=== PATIENT | female | born 1990 | race Caucasian/White ===

== ENCOUNTER 2022-02-06 20:35 | Emergency (ER) | payer OTHER, MEDICAID, SELFPAY ==
[2022-02-06 21:00] VITALS: BP 130/92; PULSE 71; RESP 16; TEMP 36; O2SAT 99; BMI 28.3
[2022-02-06 21:09] LABS: Appearance Urine Cloudy (Clear); Bilirubin Urine Negative (Negative); Blood Urine 2+ (Negative); Color Urine Yellow (Yellow); Glucose Urine Negative (Negative); Ketones Urine Negative (Negative); Leukocyte Esterase Urine 1+ (Negative); Nitrite Urine Negative (Negative); Protein Urine 3+ (Negative); Specific Gravity Urine >= 1.030 (1.000-1.030); Urobilinogen Urine 0.2 (0.2-1.0)
[2022-02-06 21:25] LABS: RBC Urine >100 (0-2)
[2022-02-06 21:26] LABS: Bacteria Urine Few; Squamous Epithelial Cell Urine Moderate (None-Few); WBC Urine >100 (0-5)
--- NOTE | 2022-02-06 21:44 | ED.ABDPAIN ---
HPI - Abdominal Pain General Chief Complaint: Flank Pain Stated Complaint: Abdominal/Back Pain Time Seen by Provider: 02/06/22 21:02 History of Present Illness HPI narrative: 31-year-old woman presenting to the emergency department with complaint fairly rapid ramp up of low abdominal pain beginning this afternoon. Subsequent pain into the left and now right flank. She notes a history of recurrent urinary tract infections since she was very young. Apparently had extensive diagnostic evaluations. She does not believe there has ever been in treatment failure but has been called once cultures were finally being done in her medical history to switch antibiotics. She has had success with cephalexin the past. She has not measured a fever. Has felt warm. Is nauseated but has not been vomiting. This flank pain is consistent with prior urinary tract infections specifically ?kidneys?. Is getting in 3 days. Admittedly has probably not been caring for herself as she should including hydration. Anxious to feel better soon. She does recall that her father had kidney stones-he was not really human he would just play golf Related Data Home Medications Medication Instructions Recorded Confirmed Adderall 02/06/22 Anti-Diarrhea 02/06/22 Wellbutrin 02/06/22 venlafaxine 02/06/22 Allergies Allergy/AdvReac Type Severity Reaction Status Date / Time No Known Drug Allergies Allergy Verified 02/06/22 21:06 Review of Systems Status of ROS Reports: 10 or more systems reviewed and unremarkable except as noted in History and below [facility] Social History Smoking Status: Never smoker How often do you have a drink containing alcohol: 4 or more times a week How many standard drinks containing alcohol do you have on a typical day: 1 or 2 How often do you have six or more drinks on one occasion: Never AUDIT-C Alcohol total score: 4 Non-prescribed substance use: denies use Exam Narrative: Exam Narrative: Pleasant. Calm. NAD. Breathing easily. Cranial nerves 2-12 intact. Lungs are clear Cardiovascular with regular rate and rhythm no murmur rub or gallop Abdomen is soft. Normoactive bowel sounds. Sore to percussion in the left greater than right flank. Sore also to suprapubic palpation. No peritoneal signs. Moving all extremities without difficulty. Well perfused. No edema Skin is warm and dry without rash Const: Vital Signs, click to edit/add: Vital Signs - 24 hr 02/06/22 21:00 02/06/22 23:00 Temperature 96.8 F L Pulse Rate [Left P ulse Oximeter] 71 76 Respiratory Rate 16 16 Blood Pressure [Ri ght Upper Arm] 130/92 H 132/62 Pulse Oximetry 99 99 Oxygen Delivery Me thod Room Air Room Air Documenting provider has reviewed patient's vital signs: yes Course Course Hospital Course: Initiated on IV fluids per our conversation. Given ketorolac. Zofran. Reevaluation(s) Reevaluation #1: Markedly improved and felt could depart home. Vital Signs Vital signs: Initial Vital Signs Temperature 96.8 F L 02/06/22 21:00 Temperature Source Temporal Artery Scan 02/06/22 21:00 Pulse Rate 71 02/06/22 21:00 Respiratory Rate 16 02/06/22 21:00 Blood Pressure 130/92 H 02/06/22 21:00 Blood Pressure Mean 104 02/06/22 21:00 Blood Pressure Position Sitting 02/06/22 21:00 Pulse Oximetry 99 02/06/22 21:00 Oxygen Delivery Method 02/06/22 21:00 Vital Signs Temperature 96.8 F L 02/06/22 21:00 Pulse Rate 71 02/06/22 21:00 Respiratory Rate 16 02/06/22 21:00 Blood Pressure 130/92 H 02/06/22 21:00 Pulse Oximetry 99 02/06/22 21:00 Oxygen Delivery Method 02/06/22 21:00 Temperature 96.8 F L 02/06/22 21:00 Pulse Rate 76 02/06/22 23:00 Respiratory Rate 16 02/06/22 23:00 Blood Pressure 132/62 02/06/22 23:00 Pulse Oximetry 99 02/06/22 23:00 Oxygen Delivery Method 02/06/22 23:00 MDM - Abdominal Pain MDM Narrative Medical decision making narrative: Urinalysis clearly positive. Elevated specific gravity. Only 1+ leukocytes and no nitrites. Is not tachycardic nor febrile. I am not sure that the flank pain necessarily represents pyelonephritis. Presents more like urinary tract infection than ureteral colic/stone. I do think that oral treatments possibly augmented with IM Rocephin, would be acceptable way to go but offered her alternative with IV fluids; she would prefer the latter. White count is minimally elevated and with normal CRP. Urinalysis somewhat concentrated, only 1+ leukocyte esterase. Large quantities of white and red cells on microscopic. Lab Data Attestation: I reviewed the patient's lab results. Labs: Lab Results 02/06/22 02/06/22 02/06/22 Range/Units 20:55 22:00 22:00 WBC 12.66 H (4.50-11.00) K/uL RBC 4.23 (4.00-5.20) m/uL Hgb 13.2 (12.0-16.0) gm/dL Hct 40.0 (33.0-51.0) % MCV 95 (80-100) fL MCH 31 (26-34) pg MCHC 33 (32-36) gm/dL RDW Coeff of Linette 11.5 (11.5-15.5) % Plt Count 296 (140-440) K/uL Neut % (Auto) 86.9 H (42.0-72.0) % Lymph % (Auto) 5.8 L (20-44) % Stevens % (Auto) 5.1 (0.0-11.0) % Eos % (Auto) 1.3 (0.0-7.0) % Baso % (Auto) 0.3 (0.0-3.0) % Neut # (Auto) 11.00 H (1.7-7.0) K/uL Lymph # (Auto) 0.70 L (0.90-2.90) K/uL Stevens # (Auto) 0.60 (0.00-0.90) K/UL Eos # (Auto) 0.20 (0.00-0.50) K/uL Baso # (Auto) 0.00 (0.00-0.30) K/uL Abs Immat Gran (auto) 0.08 (0.00-0.30) K/uL Sodium (135-149) mmol/L Potassium (3.6-5.1) mmol/L Chloride (96-114) mmol/L Carbon Dioxide (20-32) mmol/L BUN (5-24) mg/dL Creatinine (0.5-1.5) mg/dL Estimated Creat Clear Estimated GFR ml/min Glucose (60-115) mg/dL Calcium (8.4-10.6) mg/dL C-Reactive Protein (0.5-1.0) mg/dL HCG, Qual Negative (Negative) Urine Color Yellow (Yellow) Urine Appearance Cloudy A (Clear) Urine pH 6.0 (5.0-8.5) Ur Specific [place] >= 1.030 (1.000-1.030) Urine Protein 3+ A (Negative) Urine Glucose (UA) Negative (Negative) Urine Ketones Negative (Negative) Urine Blood 2+ A (Negative) Urine Nitrite Negative (Negative) Urine Bilirubin Negative (Negative) Urine Urobilinogen 0.2 (0.2-1.0) Ur Leukocyte Esterase 1+ A (Negative) Urine RBC >100 A (0-2) Urine WBC >100 A (0-5) Ur Squamous Epith Cells Moderate A (None-Few) Urine Bacteria Few A (None) 02/06/22 Range/Units 22:00 WBC (4.50-11.00) K/uL RBC (4.00-5.20) m/uL Hgb (12.0-16.0) gm/dL Hct (33.0-51.0) % MCV (80-100) fL MCH (26-34) pg MCHC (32-36) gm/dL RDW Coeff of Linette (11.5-15.5) % Plt Count (140-440) K/uL Neut % (Auto) (42.0-72.0) % Lymph % (Auto) (20-44) % Stevens % (Auto) (0.0-11.0) % Eos % (Auto) (0.0-7.0) % Baso % (Auto) (0.0-3.0) % Neut # (Auto) (1.7-7.0) K/uL Lymph # (Auto) (0.90-2.90) K/uL Stevens # (Auto) (0.00-0.90) K/UL Eos # (Auto) (0.00-0.50) K/uL Baso # (Auto) (0.00-0.30) K/uL Abs Immat Gran (auto) (0.00-0.30) K/uL Sodium 138 (135-149) mmol/L Potassium 3.7 (3.6-5.1) mmol/L Chloride 101 (96-114) mmol/L Carbon Dioxide 27 (20-32) mmol/L BUN 12 (5-24) mg/dL Creatinine 0.7 (0.5-1.5) mg/dL Estimated Creat Clear 92.10 Estimated GFR 119 ml/min Glucose 110 (60-115) mg/dL Calcium 9.0 (8.4-10.6) mg/dL C-Reactive Protein 0.7 (0.5-1.0) mg/dL HCG, Qual (Negative) Urine Color (Yellow) Urine Appearance (Clear) Urine pH (5.0-8.5) Ur Specific [place] (1.000-1.030) Urine Protein (Negative) Urine Glucose (UA) (Negative) Urine Ketones (Negative) Urine Blood (Negative) Urine Nitrite (Negative) Urine Bilirubin (Negative) Urine Urobilinogen (0.2-1.0) Ur Leukocyte Esterase (Negative) Urine RBC (0-2) Urine WBC (0-5) Ur Squamous Epith Cells (None-Few) Urine Bacteria (None) Discharge Plan Discharge Clinical Impression: Urinary tract infection, Abdominal pain Patient Disposition: Home, Self-Care Condition: Improved Additional Instructions: Focus on hydration with unsugared/unsweetened liquids. Water sounds good. Urine culture will be pending here. Return for marked increase in persistent pain, repeated vomiting, fever. Can take your home Zofran for nausea if needed. I really do hope you are feeling better by the weekend! Can take up to 800 mg of ibuprofen per dose or alternatively up to 500 mg naproxen 2 times daily. Either can be combined with up to 1000 mg of acetaminophen per dose. Remember that each tablet of Percocet has 325 mg of acetaminophen. Cephalexin and Percocet from [facility]. Prescriptions: No Action Wellbutrin venlafaxine Adderall Anti-Diarrhea Follow Up/Referrals: Provider,Not a Local [Primary Care Provider] - Stand Alone Forms: [employer] Info Instructions
[2022-02-06] MEDS: ONDANSETRON 2 MG/ML inj 4 MG IVP (22:00)
[2022-02-06] MEDS: KETOROLAC 30 MG/ML inj IVP (22:00)
[2022-02-06] MEDS: cefTRIAXone 1 GM in 0.9 % SODIUM CHLORIDE Mini-bag 100 ML IVPB (22:00)
[2022-02-06 22:40] LABS: Basophils Percent Auto 0.3 % (0.0-3.0); Chloride* 101 mmol/L (96-114); Eosinophils Percent Auto 1.3 % (0.0-7.0); Hemoglobin* 13.2 gm/dL (12.0-16.0); Immature Granulocytes Abs Auto 0.08 K/uL (0.00-0.30); Lymphocytes Percent Auto 5.8 % (20-44); Mean Corpuscular HGB Conc 33 gm/dL (32-36); Mean Corpuscular Hemoglobin 31 pg (26-34); Mean Corpuscular Volume 95 fL (80-100); Monocytes Percent Auto 5.1 % (0.0-11.0); Neutrophils Percent Auto 86.9 % (42.0-72.0); Platelet Count* 296 K/uL (140-440); Potassium* 3.7 mmol/L (3.6-5.1); RDW Coefficient of Variation % 11.5 % (11.5-15.5); Red Blood Count 4.23 m/uL (4.00-5.20); Sodium* 138 mmol/L (135-149); White Blood Count* 12.66 K/uL (4.50-11.00)
[2022-02-06 22:43] LABS: Creatinine* 0.7 mg/dL (0.5-1.5); Estimated Glomerular Filt Rate 119 ml/min
[2022-02-06 22:44] LABS: Blood Urea Nitrogen* 12 mg/dL (5-24); Carbon Dioxide* 27 mmol/L (20-32); Glucose* 110 mg/dL (60-115)
[2022-02-06 22:45] LABS: HCG Qualitative* Negative (Negative); Slide Review Reflex No
[2022-02-06 22:47] LABS: C Reactive Protein* 0.7 mg/dL (0.5-1.0)
[2022-02-06 23:00] VITALS: BP 132/62; PULSE 76; RESP 16; O2SAT 99
== END 2022-02-07 00:20 | disposition home or self-care (01) ==
PROVIDERS: Emergency Provider Family Medicine
DX: N39.0 Urinary tract infection, site not specified (principal)
CPT/HCPCS: 36415; 80048; 81003; 81015; 84703; 85025; 86140; 87086; 87186; 96365; 96375; 99284; J0696; J1885; J2405